=== PATIENT | male | born 1990 | race Two or more races ===

== ENCOUNTER 2025-06-22 16:17 | Emergency (ER) | payer SELFPAY ==
[2025-06-22 16:21] VITALS: BMI 26.1
--- NOTE | 2025-06-22 16:57 | PC.NURSE ---
called pt back, no answer at this time
--- NOTE | 2025-06-22 17:03 | PC.NURSE ---
N/A FROM [facility] X 2 FOR RME
--- NOTE | 2025-06-22 17:12 | PC.NURSE ---
LBMS SEEN BY [facility]
== END 2025-06-22 17:13 | disposition left against medical advice (07) ==
LOC: SERX 17:23
PROVIDERS: Emergency Provider Physician Assistant
DX: Z53.21 Procedure and treatment not carried out due to patient leaving prior to being seen by health care provider (principal)
CPT/HCPCS: 99281